=== PATIENT | female | born 1975 | race Caucasian/White ===

== ENCOUNTER 2017-06-20 11:49 | Outpatient (CLI) | payer BC ==
[~2017-06-20] VITALS: Ht 165.1 cm; Wt 81.8 kg
[2017-06-20 12:10] VITALS: BP 125/82
== END 2017-06-20 16:25 | disposition home or self-care (01) ==
LOC: LDOP 11:49
PROVIDERS: ATTEND Obstetrics & Gynecology
DX: O09.523 Supervision of elderly multigravida, third trimester (principal); O26.893 Other specified pregnancy related conditions, third trimester; R73.09 Other abnormal glucose; Z3A.36 36 weeks gestation of pregnancy
CPT/HCPCS: 59025; 81001; 82962; 87086; 99201; G0463

== ENCOUNTER 2017-07-21 02:22 | Inpatient (IN) | payer BC ==
[~2017-07-21] VITALS: Ht 162.6 cm; Wt 83.2 kg
[2017-07-21 02:20] VITALS: BP 140/80
[2017-07-21] MEDS: D5%-LACTATED RINGERS 1,000 ML IV SCH ×3 (02:23→18:23)
[2017-07-21] MEDS ORDERED: OXYTOCIN 30U/ 0.9% NaCL 500ML 500 ML IV ONE (02:23)
[2017-07-21] MEDS ORDERED: ONDANSETRON 2MG/ML, 2ML IVPush PRN ×2 (02:30→04:00)
[2017-07-21] MEDS ORDERED: FENTANYL PF 100 MCG/2ML IV PRN (02:30)
[2017-07-21] MEDS ORDERED: FENTANYL PF 100 MCG/2ML ONE ×2 (02:30→03:10)
[2017-07-21] MEDS ORDERED: NEWBORN KIT ONE (02:32)
[2017-07-21] MEDS: FENTANYL PF 100 MCG/2ML IVPush PRN ×2 (02:41→19:04)
[2017-07-21 03:01] LABS: BASOPHILS # (AUTO) 0.03 x10^3/uL (0-0.1); BASOPHILS % (AUTO) 0 % (0-1); EOSINOPHILS # (AUTO) 0.04 x10^3/uL (0-0.4); EOSINOPHILS % (AUTO) 0 % (1-7); LYMPHOCYTES # (AUTO) 1.74 x10^3/uL (1-3.4); LYMPHOCYTES % (AUTO) 14 % (22-44); MD NO; MEAN CORPUSCULAR HEMOGLOBIN 28.7 pg (27.0-34.8); MEAN CORPUSCULAR HGB CONC 32.9 g/dL (32.4-35.8); MEAN CORPUSCULAR VOLUME 87.2 fL (80-100); MEAN PLATELET VOLUME 10.5 fL (7.4-10.4); MONOCYTES # (AUTO) 0.84 x10^3/uL (0.2-0.8); MONOCYTES % (AUTO) 7 % (2-9); NEUTROPHILS # (AUTO) 9.79 x10^3/uL (1.8-6.8); NEUTROPHILS % (AUTO) 79 % (42-75); PLATELET COUNT 155 x10^3/uL (130-400); RED BLOOD COUNT 3.78 x10^6/uL (3.82-5.3); RED CELL DISTRIBUTION WIDTH 15.2 % (9.6-15.2)
[2017-07-21] MEDS: LACTATED RINGERS 1,000 ML IV SCH ×5 (03:09→18:23)
[2017-07-21 03:10] LABS: ALANINE AMINOTRANSFERASE 16 U/L (12-78); ALBUMIN 2.5 g/dL (3.4-5.0); ANION GAP 9 mmol/L (5-15); BILIRUBIN, DIRECT < 0.1 mg/dL (0.1-0.2); CALCIUM 8.7 mg/dL (8.5-10.1); CHLORIDE 109 mmol/L (98-107); CREATININE 0.72 mg/dL (0.55-1.02)
[2017-07-21] MEDS ORDERED: BUPIVACAINE 0.25% ONE (03:10)
[2017-07-21] MEDS ORDERED: FENTANYL/BUPIV./NS/PF 250 ML EPIDCONT ONE (03:10)
[2017-07-21 03:12] LABS: ALKALINE PHOSPHATASE 155 U/L (45-117); BILIRUBIN,TOTAL 0.2 mg/dL (0.2-1.0); TOTAL PROTEIN 6.8 g/dL (6.4-8.2)
[2017-07-21] MEDS ORDERED: FENTANYL/BUPIV./NS/PF 250 ML EPIDCONT SCH (03:40)
[2017-07-21] MEDS ORDERED: LACTATED RINGERS 1,000 ML IVBOLUS PRN (04:00)
[2017-07-21] MEDS ORDERED: EPHEDRINE 50 MG/ML, 1ML IVPush PRN (04:00)
[2017-07-21] MEDS: OXYTOCIN 30U/ 0.9% NaCL 500ML 500 ML IV SCH ×2 (04:09→14:09)
[2017-07-21] MEDS ORDERED: ONDANSETRON 2MG/ML, 2ML IV PRN (04:30)
[2017-07-21] MEDS ORDERED: IBUPROFEN 600 MG TABLET PO PRN (04:30)
[2017-07-21] MEDS ORDERED: MISOPROSTOL 200 MCG TABLET PR PRN (04:30)
[2017-07-21] MEDS ORDERED: OXYTOCIN 10 UNITS/ML, 1ML ONE (04:40)
[2017-07-21] MEDS ORDERED: CEFAZOLIN 1,000 MG ONE (04:40)
[2017-07-21] MEDS ORDERED: EPHEDRINE 50 MG/ML, 1ML ONE (04:40)
[2017-07-21] MEDS ORDERED: WATER-INJECTION,STERILE 10 ML IV ONE (04:40)
[2017-07-21] MEDS ORDERED: PHENYLEPHRINE 10 MG/ML ONE (04:40)
[2017-07-21] MEDS ORDERED: OXYTOCIN 30U/ 0.9% NaCL 500ML 500 ML ONE (05:53)
[2017-07-21 07:30] VITALS: BP 134/91
[2017-07-21] MEDS: OXYcodone/APAP 5/325MG TABLET PO PRN ×4 (08:05→21:48)
[2017-07-21 08:10] VITALS: BP 128/78
[2017-07-21] MEDS: PRENATAL VIT/IRON/FA 1 EACH TABLET PO SCH (09:00)
[2017-07-21] MEDS ORDERED: MORPHINE SULFATE 4 MG/ML, 1ML IVPush PRN (11:00)
[2017-07-21] MEDS ORDERED: morphine SULFATE 10 MG/ML, 1ML IVPush PRN (11:30)
[2017-07-21] MEDS ORDERED: KETOROLAC 30 MG/1 ML ONE (11:31)
[2017-07-21] MEDS: KETOROLAC 30 MG/1 ML IV SCH ×2 (11:36→17:47)
[2017-07-21 12:19] LABS: BASOPHILS # (AUTO) 0.04 x10^3/uL (0-0.1); BASOPHILS % (AUTO) 0 % (0-1); EOSINOPHILS # (AUTO) 0.01 x10^3/uL (0-0.4); EOSINOPHILS % (AUTO) 0 % (1-7); LYMPHOCYTES # (AUTO) 0.81 x10^3/uL (1-3.4); LYMPHOCYTES % (AUTO) 8 % (22-44); MD NO; MEAN CORPUSCULAR HEMOGLOBIN 28.7 pg (27.0-34.8); MEAN CORPUSCULAR HGB CONC 32.7 g/dL (32.4-35.8); MEAN CORPUSCULAR VOLUME 87.7 fL (80-100); MEAN PLATELET VOLUME 10.4 fL (7.4-10.4); MONOCYTES # (AUTO) 0.33 x10^3/uL (0.2-0.8); MONOCYTES % (AUTO) 3 % (2-9); NEUTROPHILS # (AUTO) 9.03 x10^3/uL (1.8-6.8); NEUTROPHILS % (AUTO) 88 % (42-75); PLATELET COUNT 133 x10^3/uL (130-400); RED BLOOD COUNT 3.43 x10^6/uL (3.82-5.3); RED CELL DISTRIBUTION WIDTH 15.6 % (9.6-15.2)
[2017-07-21 20:00] VITALS: BP 124/76
[2017-07-22] MEDS: OXYTOCIN 30U/ 0.9% NaCL 500ML 500 ML IV SCH ×2 (00:09→10:09)
[2017-07-22 01:20] VITALS: BP 113/67
[2017-07-22] MEDS: KETOROLAC 30 MG/1 ML IV SCH ×2 (01:24→05:30)
[2017-07-22] MEDS: OXYcodone/APAP 5/325MG TABLET PO PRN ×3 (04:20→16:15)
[2017-07-22 06:45] VITALS: BP 116/70
[2017-07-22] MEDS ORDERED: IBUPROFEN 600 MG TABLET ONE (10:19)
[2017-07-22] MEDS: PRENATAL VIT/IRON/FA 1 EACH TABLET PO SCH (10:26)
[2017-07-22] MEDS: DOCUSATE 100 MG CAPSULE PO PRN ×2 (10:26→22:01)
[2017-07-22] MEDS: FERROUS SULFATE 325 MG TABLET PO SCH ×2 (16:14→17:00)
[2017-07-22] MEDS: IBUPROFEN 600 MG TABLET PO PRN ×2 (16:14→22:01)
[2017-07-22 19:00] VITALS: BP 130/86
[2017-07-22] MEDS ORDERED: DIPH,PERTUSS(ACELL),TET VAC/PF NC IM-VACC ONE (20:00)
[2017-07-23] MEDS: OXYcodone/APAP 5/325MG TABLET PO PRN ×2 (02:00→08:20)
[2017-07-23] MEDS: FERROUS SULFATE 325 MG TABLET PO SCH (04:38)
[2017-07-23 08:00] VITALS: BP 124/78
[2017-07-23] MEDS: DOCUSATE 100 MG CAPSULE PO PRN (08:21)
[2017-07-23] MEDS: PRENATAL VIT/IRON/FA 1 EACH TABLET PO SCH (08:21)
[2017-07-23] MEDS ORDERED: OXYC-302 PO (09:36)
[2017-07-23] MEDS ORDERED: IBUP-1222 PO (09:36)
[2017-07-23] MEDS ORDERED: IBUPROFEN 600 MG TABLET PO PRN (11:30)
[2017-07-23] MEDS: IBUPROFEN 600 MG TABLET PO PRN (12:52)
== END 2017-07-23 16:05 | disposition home or self-care (01) | DRG 766 ==
LOC: LDOP 02:22 → LDIP 02:30 → 2NW 07:20
PROVIDERS: ADMIT Obstetrics & Gynecology; ATTEND Obstetrics & Gynecology
PROC: 10D00Z1 Extraction of Products of Conception, Low, Open Approach (ICD-10-PCS; principal; 2017-07-21)
DX: O76 Abnormality in fetal heart rate and rhythm complicating labor and delivery (principal); Z37.0 Single live birth; Z3A.33 33 weeks gestation of pregnancy
CPT/HCPCS: 36415; 80053; 82248; 82803; 83615; 84550; 85025; 86850; 86900; 90715; J0690; J1885; J3010; J3490; J2270; J2370; J2590; J7120

== ENCOUNTER 2017-11-03 11:58 | Emergency (ER) | payer BC ==
[~2017-11-03] VITALS: Ht 165.1 cm; Wt 77.0 kg
[~2017-11-03 11:58] MED LIST: IBUP-1222 PO; OXYC-302 PO
[2017-11-03 12:00] VITALS: BP 130/84
[2017-11-03] MEDS ORDERED: CLIN150C14 PO (13:19)
[2017-11-03] MEDS ORDERED: LIDOCAINE-MPF 2% ,5ML ONE (13:22)
[2017-11-03] MEDS ORDERED: LIDOCAINE 2%, 20ML SQ ONE (13:30)
[2017-11-03] MEDS ORDERED: SODIUM CHLORIDE FLUSH 10ML SYR IVF ONE (14:00)
[2017-11-03 14:18] LABS: BASOPHILS % (AUTO) 1 % (0-1); EOSINOPHILS # (AUTO) 0.19 x10^3/uL (0-0.4); EOSINOPHILS % (AUTO) 1 % (1-7); LYMPHOCYTES # (AUTO) 1.51 x10^3/uL (1-3.4); LYMPHOCYTES % (AUTO) 10 % (22-44); MD NO; MEAN CORPUSCULAR HEMOGLOBIN 29.8 pg (27.0-34.8); MEAN CORPUSCULAR HGB CONC 33.2 g/dL (32.4-35.8); MEAN CORPUSCULAR VOLUME 89.5 fL (80-100); MEAN PLATELET VOLUME 7.6 fL (7.4-10.4); MONOCYTES # (AUTO) 1.25 x10^3/uL (0.2-0.8); MONOCYTES % (AUTO) 9 % (2-9); NEUTROPHILS # (AUTO) 11.59 x10^3/uL (1.8-6.8); NEUTROPHILS % (AUTO) 79 % (42-75); PLATELET COUNT 357 x10^3/uL (130-400); RED BLOOD COUNT 4.15 x10^6/uL (3.82-5.3); RED CELL DISTRIBUTION WIDTH 14.7 % (9.6-15.2)
[2017-11-03 14:27] LABS: ALANINE AMINOTRANSFERASE 31 U/L (12-78); ALBUMIN 3.5 g/dL (3.4-5.0); ANION GAP 6 mmol/L (5-15); CALCIUM 8.6 mg/dL (8.5-10.1); CHLORIDE 102 mmol/L (98-107); CREATININE 0.91 mg/dL (0.55-1.02)
[2017-11-03 14:30] LABS: ALKALINE PHOSPHATASE 91 U/L (45-117); BILIRUBIN,TOTAL 0.5 mg/dL (0.2-1.0); TOTAL PROTEIN 8.3 g/dL (6.4-8.2)
[2017-11-03] MEDS ORDERED: IBUPROFEN 200 MG TABLET PO ONE (14:30)
[2017-11-03] MEDS ORDERED: ACETAMINOPHEN 500 MG TABLET PO ONE (14:30)
[2017-11-03] MEDS ORDERED: IBUPROFEN 200 MG TABLET ONE (14:33)
[2017-11-03] MEDS ORDERED: ACETAMINOPHEN 500 MG TABLET ONE (14:33)
[2017-11-03] MEDS ORDERED: MORPHINE SULFATE 4 MG/ML, 1ML ONE (14:52)
[2017-11-03] MEDS ORDERED: METOCLOPRAMIDE 5 MG/ML, 2ML ONE (14:52)
[2017-11-03] MEDS ORDERED: METOCLOPRAMIDE 5 MG/ML, 2ML IVPush ONE (15:00)
[2017-11-03] MEDS ORDERED: MORPHINE SULFATE 4 MG/ML, 1ML IVPush ONE (15:00)
[2017-11-03] MEDS ORDERED: OMNIPAQUE 350 MG/ML, 100ML BOTTLE ONE (15:43)
== END 2017-11-03 16:53 | disposition home or self-care (01) ==
LOC: ED 16:30
DX: L02.416 Cutaneous abscess of left lower limb (principal)
CPT/HCPCS: 10060; 36415; 72193; 80053; 84703; 85025; 96374; 96375; 99285; J2765; Q9967

== ENCOUNTER 2017-11-05 16:04 | Emergency (ER) | payer BC ==
[~2017-11-05] VITALS: Ht 165.1 cm; Wt 78.7 kg
[~2017-11-05 16:04] MED LIST changes: +CLIN150C14 PO
[2017-11-05 16:19] VITALS: BP 147/96
== END 2017-11-05 16:57 | disposition home or self-care (01) ==
LOC: ED 16:52
DX: L02.31 Cutaneous abscess of buttock (principal)
CPT/HCPCS: 99283